=== PATIENT | female | born 1980 | race Caucasian/White ===

== ENCOUNTER 2017-03-04 07:06 | Day surgery (SDC) | payer OTHER ==
[~2017-03-04] VITALS: Ht 168.9 cm; Wt 56.6 kg
[2017-03-04] VITALS (11 sets, daily range): BP systolic 93–122; BP diastolic 58–78; PULSE 58–86; RESP 8–16; O2SAT 98–100
[2017-03-04] MEDS: Lactated Ringer's 1,000 ML IV SCH ×2 (05:28→09:30)
[~2017-03-04 07:06] MED LIST: CeFAZolin Inj 2 GM in IV Premix 1 EACH IV ONE; DEXT10TA23 PO; IMI25 PO; KLO5T PO; MORPHINE ER PO; NICO1PAT16 TRANSDERM; OXYC-466 PO; PRAZ2CAP2 PO; ROB500 PO; SERT20OR6 PO
[2017-03-04] MEDS ORDERED: fentaNYL-PF 50 mCg/mL 2 mL Inj ONE (07:07)
[2017-03-04] MEDS ORDERED: EPHEDrine/NS 5 mg/mL 5 mL Syringe ONE (07:07)
[2017-03-04] MEDS ORDERED: Propofol 10,000 mCg/mL 20 mL Inj ONE (07:07)
[2017-03-04] MEDS ORDERED: Dexamethasone 4 mg/mL Inj ONE (07:07)
[2017-03-04] MEDS ORDERED: Ondansetron 2 mg/mL 2 mL Inj ONE (07:07)
[2017-03-04] MEDS ORDERED: MetoCLOpramide 5 mg/mL 2 mL Inj ONE (07:07)
[2017-03-04] MEDS ORDERED: LORazepam 1 mg Tablet ONE (07:34)
[2017-03-04] MEDS ORDERED: LORazepam 1 mg Tablet PO ONE (07:58)
--- NOTE | 2017-03-04 08:20 | PCM.HPANE ---
Patient Data Date of Service: March 04, 2017 Surgeon Admitting Provider: Attending Provider:Kunal Page DPM Primary Care Physician:Damion Goode MD Other Provider:Lory Uriostegui Anesthesia Reason for Visit Os Triginum Syndrome, Chronic Pain Of Left Ankle Ht/WT & BMI Height (Feet): 5 Height (Inches): 6.5 Weight (Kilograms): 56.6 Body Mass Index 19.00 Allergies Coded Allergies: ibuprofen (Verified Adverse Reaction, Severe, nausea, cold sweats, 03/02/17 ) pregabalin (Verified Adverse Reaction, Severe, severe migraine w/vomiting and was hospitalized, 03/02/17) tramadol (Verified Adverse Reaction, Severe, Nausea, 03/02/17) Past Anesthesia History Anesthesia History: Denies:: Anesthesia Reactions, Malignant Hyperthermia Diabetes History Hx Diabetes?: No MRSA MRSA: No Medications Hypertension Medication: No Home Meds Incl Beta Andrés: No Reported Medications Sumatriptan (Imitrex)25 Mg Xdlrop10 Mg PO PRN 03/02/17 Sertraline HCl (Sertraline)20 Mg/1 Ml Oral.conc50 Mg PO DAILY #1 BOTTLE Ref 0 03/02/17 Prazosin 2 Mg Capsule2 Mg PO HS 03/02/17 oxyCODONE-Acetaminophen 10-325 mg 1 Each Tablet1 Tablet PO Q6H PRN For Pain Ref 0 03/02/17 Nicotine 21 mg/24 hr Patch 1 Each Patch.dysq1 Patch TRANSDERM DAILY Ref 0 03/02/17 [Morphine Er] No Conflict Check15 Mg PO HS 03/02/17 Methocarbamol 500 Mg Zvzduw289-6,000 Mg PO HS 03/02/17 Dextroamphetamine/Amphetamine (Amphetamine Mixed Salts)10 Mg Rpbndj69 Mg PO DAILY Ref 0 03/02/17 Clonazepam 0.5 Mg Tablet0.5-1 Mg PO TID PRN For Anxiety Ref 0 03/02/17 Discontinued Scripts Sulfamethoxazole/Trimeth 800-160 mg (Bactrim DS)1 Each Tablet1 Tablet PO BID # 20 TABLET Ref 0 Prov:Luli Raphael MD 09/20/16 Oxycodone (Roxicodone)5 Mg Tablet5 Mg PO Q4H PRN For Pain #20 TABLET Ref 0 use 1-2pills with your usual pain managment for new and acute kidney pain Prov:Luli Raphael MD 09/20/16 Hydrocodone-Acetaminophen 7.5-325 mg 1 Each Tablet1-2 Tablet PO Q6 PRN For Pain #24 TABLET Ref 0 Prov:Jim Ortega MD 09/09/15 Sulfamethoxazole/Trimeth 800-160 mg (Bactrim DS)1 Each Tablet1 Tablet PO BID # 20 TABLET Ref 0 Prov:Jim Ortega MD 09/09/15 History History of ENT Problems?: Yes HEENT History: Denies:: Abnormal Airway Denture Type: Partial- Upper Teeth Condition: Missing Teeth Other HEENT Pertinent History: S/P TONSILLECTOMY Hx of Heart Problems?: No Cardiovascular History: Denies:: Congestive Heart Failure Heart Murmur Hypertension Hx of Respiratory Problem?: No Respiratory History: Denies:: Tuberculosis Use of C-PAP Machine Other History/Comment former smoker Hx Neurologic Problems?: Yes Neurological History: Positive for:: Headaches Other History/Comments fibromyalgia on chronic narcotics, anxiety on sedatives, recieved lorazepam PO this morning Hx of GI Problems?: No Hx of Problems?: Yes Genitourinary History: Positive for:: Urinary Tract Infection (ED VISIT FOR PYELONEPHRITIS 08/2016) Female Hx: Denies:: Currently Skin History: Positive for:: History Skin Disorders? (HX FREQUENT ABCESSES & SKIN INFECTIONS) Denies:: Pressure Ulcers Hx Musculoskeletal Problems?: Yes Musculoskeletal History: Positive for:: Fibromyalgia Musculoskeletal Trauma (HX OF DISTAL FIB FX W/ NON UNION, KNEE PAIN) Osteoarthritis Hx of Psycho/Social Problems?: Yes Psycho Social History: Positive for:: Anxiety (PTSD,NIGHT TERRORS) Hx Depression Hx Surgeries?: Yes (TONSILLECTOMY,HYST) Hx Any Other Health Problems?: Yes Other History: Denies:: Cancer Endocrine Disease Hospitalization Thyroid Disease Hx Diabetes: No Hx Alcohol Use: NoHx Substance Use: No Smoking Status: Never Smoker Have You Smoked inLast 12 mo: YesApprox How Many Cigarettes/day: QUIT Stop/Bang S-Snoring: Do You Snore Loudly: No T-Tired: feel tired, fatigued: No O-Obsered: Observed not breath: No P-Blood Pressure: treated: No B- Body Mass Index > 35 kg/m2: No A- Age over 50: No N- Neck Large Circumference: No G- Gender Male: No DANICA Total Score: 0 Risk Assessment Category Category 1A: Patient has history of documented sleep apnea, and HAS NOT received any narcotic, sedative or anesthesia administration during this stay. Category 1B: Patient has history of documented sleep apnea, and HAS received any narcotic , sedative or anesthesia administration during this stay Category 2: Patient has SUSPECTED Obstructive Sleep Apnea, and HAS received any narcotic , sedative or anesthesia administration during this stay. Category 3: Patient has SUSPECTED Obstructive Sleep Apnea and HAS NOT received narcotic, sedative or anesthesia administration during this stay. Category 4: Outpatient in Procedural Areas with known sleep apnea or who screen positive for High Risk via the STOP/BANG questionnaire. Exam Exam Vital Signs Vital Signs Date Time Temp Pulse Resp B/P Pulse Ox O2 Delivery O2 Flow Rate FiO2 03/04/17 07:23 36.2 86 12 119/78 99 Room Air General Appearance: Oriented X3, Cooperative, Other (mildly sedated but awake, answering questions appropriatele) HEENT/AIRWAY: MP 1 Lungs: Clear to Auscultation, Clear to Percussion Heart: Exam Unremarkable, Regular Rate/Rhythm Meds/Labs/Diagnostics Admission Meds Current Medications Lactated Ringer's (Lr) 1,000 ml @ 120 mls/hr Q8H20M IV Last administered on t 05:28; Start 03/04/17 at 05:00; Stop 03/04/17 at 13:19 Plan Impression Patient chart reviewed, patient interviewed and anesthestic plan with risks, benefits, and alternatives discussed, and informed consent obtained. ASA Physical Status: ASA2 Mod Systemic Disease Bene/Risks/Altern/Consents: Yes (thoroughly discussed risk of: block failure, nerve damage, infection at block site, bleeding. risks of GA: PONV, cardiac/ respiratory complications) HP Complete Prior to Induction: Yes Keenan Hamilton MD March 04, 2017 07:38 Chi Elliott MD March 04, 2017 08:17
[2017-03-04] MEDS ORDERED: Bupivacaine-MPF 0.5% W/EPI 30 mL Inj NERVEBLOCK ONE (09:40)
[2017-03-04] MEDS ORDERED: Lidocaine 1%-Epi 1:100,000 20 mL Inj NERVEBLOCK ONE (09:40)
[2017-03-04] MEDS ORDERED: Lactated Ringer's 500 ML IV PRN (09:56)
[2017-03-04] MEDS ORDERED: Lactated Ringer's 1,000 ML IV SCH (09:56)
[2017-03-04] MEDS ORDERED: Labetalol 5 mg/mL 4 mL Inj IV PRN (10:00)
[2017-03-04] MEDS ORDERED: EPHEDrine Sulfate 50 mg/mL Inj IVPUSH PRN (10:00)
[2017-03-04] MEDS ORDERED: HYDROmorphone 1 mg/mL Inj IVPUSH PRN (10:00)
[2017-03-04] MEDS ORDERED: fentaNYL-PF 50 mCg/mL 2 mL Inj IVPUSH PRN (10:00)
[2017-03-04] MEDS ORDERED: Phenylephrine 10,000 mCg/mL Inj IVPUSH PRN (10:00)
[2017-03-04] MEDS ORDERED: Atropine 0.4 mg/mL Inj IVPUSH PRN (10:00)
[2017-03-04] MEDS ORDERED: MetoCLOpramide 5 mg/mL 2 mL Inj IVPUSH PRN (10:00)
[2017-03-04] MEDS ORDERED: Ondansetron 2 mg/mL 2 mL Inj IVPUSH PRN (10:00)
--- NOTE | 2017-03-04 10:50 | PCM.PODPO ---
Podiatry Operative Report Date of Service: March 04, 2017 Date of Service March 04, 2017 Pre Operative Diagnosis Flexor hallucis longus tendinitis left foot Os trigonum left foot Post Operative Diagnosis Flexor hallucis longus tendinitis left foot Os trigonum left foot Soft tissue mass left posterior ankle Capsulitis of the left posterior ankle Procedure Debridement of the left flexor hallucis longus longus musculotendinous junction Removal of os trigonum Excision of soft tissue mass left posterior ankle Debridement of the left posterior ankle capsule Surgeon Surgeon: Kunal Page DPM Assistants: None Indication for Procedure Painful left ankle Findings Soft tissue mass consistent with ganglion cyst of the left posterior ankle capsule, impingement of the left posterior ankle capsule within the posterior aspect of the ankle joint, low-lying muscle belly of the flexor hallucis longus tendon with muscle belly extending past the level of the lateral talar process Details of Procedure The patient was identified in the preoperative holding area. All preoperative comorbidities and allergies were identified and thoroughly discussed. This was given a preoperative popliteal block by the anesthesia service. Patient was then transported into the operating room and placed on the operating room table in the normal supine position. The patient was then prepped and draped in the normal aseptic technique a preoperative block consisting of 10 mL half percent Marcaine with epinephrine was given to the left posterior ankle and left lateral hindfoot. A linear incision approximately 3.57 m in length was made with a fresh #15 blade approximately once centimeter posterior to the peroneal tendon sheath. Once through the initial layer of skin all subcutaneous neurovascular structures were identified and retracted out of the surgical field. A Metzenbaum scissor was utilized to bluntly dissected through subcutaneous tissue into the posterior aspect of the ankle blunt dissection was carefully performed to identify the flexor hallucis longus tendon. Direct visualization of the flexor hallucis longus tendon was achieved. Inspection of the flexor hallucis longus tendon revealed a significantly low lying muscle belly which extended through the posterior aspect of the talus and appeared to potentially impinge on the medial aspect of the calcaneus. Debridement was performed of approximately 2 cm of the distal aspect of the flexor hallucis longus muscle belly. Blunt dissection was performed to identify the very small os trigonum which was then resected without issue area and inspection of the posterior lateral aspect of the ankle revealed an approximately 2 cm x 2 cm soft tissue mass surrounded and lipomatous tissue consistent with a ganglion cyst this cyst was excised sharply with a Metzenbaum scissor and removed in whole. The cyst was then sent for pathologic identification. The foot was placed through range of motion in dorsiflexion and plantar flexion and it was clearly visible that the posterior aspect of the ankle capsule was invaginated within the posterior aspect of the ankle joint likely causing significant impingement. Debridement of the posterior ankle capsule was performed with removal of all impinging soft tissue. This wound was ankle was a flush with large amounts of normal saline. The flexor hallucis longus tendon was placed through normal range of motion I dorsiflexing and plantar flexing the hallux and found to freely glide within the processes of the talus and into the tarsal tunnel. Deep closure of the wound was then performed in a layered fashion utilizing number 3. 0 Vicryl and skin closure was performed with number 3. 0 Prolene. A postoperative injection of dexamethasone phosphate 1 mL of a 4 mg/ mL solution was performed to the left posterior ankle joint. A postoperative local block was administered consisting of 10 mL of half percent Marcaine with epinephrine. No compensations occur during this procedure the patient was placed into a dressing consisting of Adaptic sterile 4 x 4 gauze Kerlix and a loosely applied Tab bandage. The patient was awoken by anesthesia and transported out of the operating room Grafts, Implants: None Complications There were no periprocedural complications identified. Condition Stable Anesthetic Administered: GA Catheters: None Output, Estimated Blood Loss: 20 Blood Admin during surgery: No Surgical Cast or Splint: None Surgical Specimen Removed: Yes Specimen sent to Pathology: Yes Surgical Specimen description: Soft tissue mass left posterior ankle/foot Post Operative Plan Ice and elevate left lower extremity Nonweightbearing left lower extremity Keep dressing clean dry and intact Contact office with any questions or concerns Discharge to home when stable Kunal Page DPM March 04, 2017 10:50
--- NOTE | 2017-03-04 13:33 | PCM.ANEP1 ---
Post Anesthesia Phase 1 PACU Phase 1 Assessment Date of Service: March 04, 2017 Vital Signs Vital Signs Date Time Temp Pulse Resp B/P Pulse Ox O2 Delivery O2 Flow Rate FiO2 03/04/17 11:50 36.5 70 16 102/62 98 Room Air 03/04/17 11:40 75 11 93/61 98 Room Air 03/04/17 11:20 67 11 97/59 98 Room Air 03/04/17 11:15 36.8 69 11 95/58 98 Room Air 03/04/17 11:05 68 10 96/69 99 Room Air 03/04/17 11:00 68 9 98/59 99 Room Air 03/04/17 10:55 58 9 103/65 99 Room Air 03/04/17 10:50 69 10 103/65 100 Room Air 03/04/17 10:45 79 10 115/67 100 Room Air 03/04/17 10:39 36.9 80 8 122/74 100 Simple Mask 8 03/04/17 07:23 36.2 86 12 119/78 99 Room Air Anesthetic Administered: GA Level of Alertness: Awake, talking CORCORAN's with Equal Strength: Yes (except for distriuntion of popliteal block) Pain: No Nausea or Vomiting: No Cardiovascular Function and Hy: No Oxygen Delivery: Room Air Lungs: Clear to Auscultation, Clear to Percussion Dermatome Level: Full Sensation (except for block) Complications: No Follow up Care: No Keenan Hamilton MD March 04, 2017 13:33
--- NOTE | 2017-03-07 14:49 | PATH ---
SURGICAL PATHOLOGY Attending Physician:Kunal Page, CASE STATUS: Signed Out PATIENT NAME: JAY APPIAH PID: [id number] : 1980 DATE COLLECTED:03/04/2017 15:23 SPECIMEN: Soft Tissue Mass, Biopsy CLINICAL HISTORY: POSTERIOR ANKLE PAIN LEFT ACCESSORY OSSICLES FLEXOR HALLUCIS TENDENITIS 1.SOFT TISSUE POSTERIOR LEFT ANKLE FINAL DIAGNOSIS: 1.SOFT TISSUE POSTERIOR LEFT ANKLE: FIBROFATTY TISSUE WITH NONSPECIFIC REACTIVE-APPEARING HYPERVASCULARITY. ICD10 CODE M25.572 GROSS DESCRIPTION: The specimen is received in one formalin filled container labeled with the patient's name, sublabeled "soft tissue posterior left ankle" and consists of a 1.2 x 1.1 x 0.7 CM white yellow marie portion of tissue. The specimen is inked blue. The specimen is trisected and entirely submitted in one cassette. 03/04/2017 [facility] MICRO DESCRIPTION: See diagnosis. ICD-9 CODES: CPT CODES: 35896 Electronically Signed Out Drew Dahl MD [facility] [address], [place] [address] Technical component performed at [facility], [address] [place] [address] [address], [place], [address]
== END 2017-03-04 23:59 | disposition home or self-care (01) ==
LOC: SAS 07:06
PROVIDERS: ATTEND Podiatrist Foot & Ankle Surgery
DX: Q68.8 Other specified congenital musculoskeletal deformities (principal); M77.52 Other enthesopathy of left foot and ankle; M25.572 Pain in left ankle and joints of left foot; R22.42 Localized swelling, mass and lump, left lower limb
CPT/HCPCS: 27630; 28120; 88305; J0690; J1100; J2250; J2405; J2765; J3010; J7120